=== PATIENT | female | born 1990 ===

== ENCOUNTER 2017-02-23 17:24 | Emergency (ER) | payer MEDICAID, OTHER ==
[2017-02-23] MEDS ORDERED: Sodium Chloride 0.9% 1,000 ML IV ONE (17:35)
--- NOTE | 2017-02-23 17:43 | C.PDOC ---
History Of Present Illness Patient is a 26 y/o female, with past medical history of elective at age 16, that presents to the ED for evaluation of abdominal cramping and vaginal bleeding associated with nausea, and vomiting. Patient reports being seen by OBGYN who informed her of approximately 10 week gestation, however, was told there was no heart beat, and informed her of spontaneous . Pt reports taking Methotrexate given by her OBGYN. Notes taking the 1st dose of Methotrexate at 1am last night, and the second dose at 1pm this afternoon. Pt reports taking Percocet for pain without any relief. Otherwise, denies any fever , diarrhea, or any other associated symptoms at this time. Time Seen by Provider: 02/23/17 17:31 Chief Complaint (Nursing): Abdominal Pain History Per: Patient History/Exam Limitations: no limitations Onset/Duration Of Symptoms: Days Current Symptoms Are (Timing): Still Present Radiation Of Pain To:: None Quality Of Discomfort: Cramping Associated Symptoms: Nausea, Vomiting. denies: Fever, Chills, Diarrhea, Loss Of Appetite, Back Pain, Chest Pain, Constipation, Urinary Symptoms Exacerbating Factors: None Alleviating Factors: None Recent travel outside of the [place]: No Additional History Per: Patient Abnormal Vaginal Bleeding: Yes Past Medical History Reviewed: Historical Data, Nursing Documentation, Vital Signs Vital Signs: Last Vital Signs Temp 98.2 F 02/23/17 21:41 Pulse 76 02/23/17 21:41 Resp 18 02/23/17 21:41 BP 103/63 02/23/17 21:41 Pulse Ox 99 02/23/17 21:41 Family History: States: No Known Family Hx - Social History Hx Alcohol Use: No Hx Substance Use: No Review Of Systems Except As Marked, All Systems Reviewed And Found Negative. Constitutional: Negative for: Fever, Chills Gastrointestinal: Positive for: Nausea, Vomiting, Abdominal Pain. Negative for : Diarrhea, Constipation Genitourinary: Positive for: Vaginal Bleeding. Negative for: Dysuria, Frequency , Incontinence, Hematuria Musculoskeletal: Negative for: Back Pain Physical Exam - Physical Exam Appears: Non-toxic, No Acute Distress Skin: Normal Color, Warm, Dry Head: Atraumatic, Normacephalic Eye(s): bilateral: Normal Inspection, EOMI Neck: Normal ROM, Supple Chest: Symmetrical, No Tenderness Cardiovascular: Rhythm Regular, No Murmur Respiratory: Normal Breath Sounds, No Rales, No Rhonchi, No Wheezing Gastrointestinal/Abdominal: Soft, Tenderness (mild lower abdominal tenderness, non-focal), No Guarding, No Rebound Pelvic: Other (removed products of conception from vaginal vault) Neurological/Psych: Oriented x3, Normal Speech, Normal Cognition ED Course And Treatment - Laboratory Results Result Diagrams: 02/23/17 17:45 02/23/17 17:45 O2 Sat by Pulse Oximetry: 97 (on RA) Pulse Ox Interpretation: Normal Progress Note: Blood work, urinalysis ordered and reviewed. Pt was given Toradol , Zofran, and IV fluids in the ER. Removed products of conception, and sent to pathology. Medical Decision Making Medical Decision Making: POC sent to pathology rhogam given the pt reported resolution of pain she appears well and was dc in improved condition Disposition - Disposition Disposition: HOME/ ROUTINE Disposition Time: 21:42 Condition: IMPROVED Additional Instructions: Please follow up with your OBGYN doctor tomorrow. Return to the ER for any worsening symptoms or for any other concerns. Prescriptions: Nitrofurantoin Macrocrystals [Macrobid] 100 mg PO BID #14 cap Instructions: Spontaneous Miscarriage (ED), Urinary Tract Infection in Women ( ED) Forms: General Discharge Instructions - Clinical Impression Clinical Impression: Spontaneous - Scribe Statement The provider has reviewed the documentation as recorded by the Scribmaria esther Suresh All medical record entries made by the Tammieibe were at my direction and personally dictated by me. I have reviewed the chart and agree that the record accurately reflects my personal performance of the history, physical exam, medical decision making, and the department course for this patient. I have also personally directed, reviewed, and agree with the discharge instructions and disposition.
[2017-02-23] MEDS ORDERED: Sodium Chloride 0.9% 1,000 ML ONE (17:46)
[2017-02-23 17:48] LABS: BASO % 0.4 % (0.0-2.0); EOS # 0.1 K/uL (0.0-0.7); EOS % 0.6 % (0.0-4.0); LYMPH % 18.8 % (20.0-40.0); MEAN CELL VOLUME 87.6 fL (81.0-99.0); MEAN CORPUSCULAR HEMOGLOBIN 28.4 pg (27.0-31.0); MEAN CORPUSCULAR HGB CONC 32.4 g/dL (33.0-37.0); MEAN PLATELET VOLUME 9.5 fL (7.2-11.7); MONO # 0.6 K/uL (0.0-0.8); MONO % 5.8 % (0.0-10.0); NEUT # 7.9 K/uL (1.8-7.0); NEUT % 74.4 % (50.0-75.0); RBC 4.22 Mil/uL (3.80-5.20); RED CELL DISTRIBUTION WIDTH 12.7 % (11.5-14.5); WHITE BLOOD COUNT 10.6 K/uL (4.8-10.8)
[2017-02-23 18:00] LABS: ALBUMIN 3.6 g/dL (3.5-5.0)
[2017-02-23 18:02] LABS: GFR AFRICAN-AMERICAN > 60; GFR NON-AFRICAN AMERICAN > 60
[2017-02-23 18:03] LABS: ALT/SGPT 32 U/L (9-52); AST/SGOT 29 U/L (14-36); BLOOD UREA NITROGEN 20 mg/dL (7-17)
[2017-02-23 18:42] LABS: HCG,QUALITATIVE URINE POSITIVE (NEGATIVE)
[2017-02-23 18:43] LABS: SQUAMOUS EPITHIAL 1 /hpf (0-5); URINE BACTERIA FEW (<OCC); URINE BILIRUBIN NEGATIVE (NEGATIVE); URINE BLOOD 3+ (NEGATIVE); URINE CLARITY Hazy (Clear); URINE COLOR Yellow (YELLOW); URINE GLUCOSE (UA) NORMAL (Normal); URINE LEUKOCYTE ESTERASE TRACE Leu/uL (Negative); URINE NITRATE POSITIVE (NEGATIVE); URINE PROTEIN NEGATIVE (NEGATIVE); URINE UROBILINOGEN NORMAL mg/dL (0.2-1.0)
[2017-02-23 20:09] VITALS: RESP 18
[2017-02-23 21:30] VITALS: BP 103/63; PULSE 76; TEMP 98.2
[2017-02-25 00:32] VITALS: O2SAT 97
== END 2017-02-23 21:42 | disposition home or self-care (01) ==
LOC: C.ER 17:24
DX: O03.9 Complete or unspecified spontaneous abortion without complication (principal)
CPT/HCPCS: 36415; 80053; 81001; 84702; 84703; 85025; 86850; 86870; 86900; 88305; 96361; 96374; 96375; 99285; J1885; J2405; J2792; J7040